=== PATIENT | female | born 1990 | race Caucasian/White ===

== ENCOUNTER 2020-10-25 15:09 | Emergency (ER) | payer MEDICAID, SELFPAY ==
[2020-10-25 15:10] VITALS: BP 122/73; PULSE 98; RESP 14; TEMP 36.9; O2SAT 100; BMI 28.4
[2020-10-25 16:21] VITALS: BP 120/62; PULSE 97; RESP 16; O2SAT 98
--- NOTE | 2020-10-25 17:03 | CT_ITS ---
EXAM: CT ANGIOGRAPHY HEAD WITHOUT AND WITH INTRAVENOUS CONTRAST : 1990 CLINICAL INDICATION: Venous sinus thrombosis TECHNIQUE: [place] [facility] [place]/head CT angiography protocol performed without and with intravenous contrast. This CT exam was performed using one or more of the following dose reduction techniques: automated exposure control, adjustment of the mA and/or kV according to patient size, and/or use of iterative reconstruction technique. This report was created using [employer] report generation technology. MIP reconstructed images were created and reviewed. CONTRAST: IV 100mL Isovue-300 COMPARISON: None. FINDINGS: VASCULATURE: RIGHT INTERNAL CAROTID ARTERY: No acute findings. No significant stenosis at the intracranial/visualized segments. No aneurysm. RIGHT ANTERIOR CEREBRAL ARTERY: Unremarkable. No significant stenosis at the visualized segments. Anterior communicating artery is present. No aneurysm. RIGHT MIDDLE CEREBRAL ARTERY: Unremarkable. No significant stenosis at the visualized segments. No aneurysm. RIGHT POSTERIOR CEREBRAL ARTERY: Unremarkable. No occlusion or significant stenosis. No aneurysm. RIGHT VERTEBRAL ARTERY: Unremarkable as visualized. No significant stenosis at the intradural/visualized segments. No aneurysm. LEFT INTERNAL CAROTID ARTERY: No acute findings. No significant stenosis at the intracranial/visualized segments. No aneurysm. LEFT ANTERIOR CEREBRAL ARTERY: Unremarkable. No significant stenosis at the visualized segments. No aneurysm. LEFT MIDDLE CEREBRAL ARTERY: Unremarkable. No significant stenosis at the visualized segments. No aneurysm. LEFT POSTERIOR CEREBRAL ARTERY: Unremarkable. No occlusion or significant stenosis. No aneurysm. LEFT VERTEBRAL ARTERY: Unremarkable as visualized. No significant stenosis at the intradural/visualized segments. No aneurysm. BASILAR ARTERY: Unremarkable. No significant stenosis. No aneurysm. OTHER VASCULATURE: No vascular malformation. Venous sinuses are well-opacified with no filling defects. HEAD: BRAIN AND EXTRA-AXIAL SPACES: Unremarkable. No intra- or extra-axial hemorrhage. No evidence of acute infarct. No intracranial mass or mass effect. There is preservation of the jasso/white matter interface. Posterior fossa structures are unremarkable. Ventricles are appropriate for age. No hydrocephalus. Basal cisterns are patent. BONES/JOINTS: Unremarkable. No discrete lytic or blastic abnormalities. SINUSES: Unremarkable as visualized. Clear. MASTOID AIR CELLS: Unremarkable as visualized. Clear. ORBITS: Visualized globes, extraocular muscles, optic nerves and retrobulbar fat appear unremarkable. CT/CTA Head W/WO Contrast IMPRESSION: Negative head CTA. Individualized dose optimization techniques were used for this CT. at 1755 Reported and signed by: Vinod Pantoja MD Electronically Signed: Vinod Pantoja MD at 17:54 EDT Tel , Service support ,
[2020-10-25] MEDS: 0.9% Normal Saline 1,000 ML 999 ML IV (17:18)
[2020-10-25] MEDS: Metoclopramide 10 MG/2 ML Vial IV (17:20)
[2020-10-25] MEDS: DiphenhydrAMINE 50 MG/ML Syringe 25 MG IV (17:20)
[2020-10-25 17:33] LABS: Hematocrit 34.8 % (37-47); Hemoglobin 11.9 g/dL (12.0-15.0); Mean Corp Hgb Conc 34.2 g/dL (32-36); Mean Corpuscular Hgb 30.9 pg (27.0-32.0); Mean Corpuscular Volume 90.4 fL (81-99); Mean Platelet Vol. 9.7 fl (6.2-12.0); Platelet Count 301 K/mm3 (150-450); RBC Distribution Width CV 13.1 % (11.6-14.6); RBC Distribution Width SD 42.4 fl (35.1-43.9); Red Blood Count 3.85 M/mm3 (4.2-5.4); White Blood Count 10.5 K/mm3 (4.4-11.0)
[2020-10-25 17:51] LABS: Anion Gap 8 (5-15); BUN 6 mg/dL (7-18); BUN/Creat Ratio 13.2 RATIO (10-20); Chloride 106 mmol/L (98-107); Creatinine, Serum 0.46 mg/dL (0.55-1.02); EST Glomerular Filtration Rate 174 mL/min (>60); Est Glom Filt Rate - Afr Amer 210 mL/min (>60); Estimated Creatinine Clearance 183.67 ml/min; Glucose 77 mg/dL (74-106); Potassium 3.1 mmol/L (3.5-5.1); Sodium Level 138 mmol/L (136-145)
--- NOTE | 2020-10-25 18:02 | EDS_ITS ---
HPI History of Present Illness Chief Complaint: Headache Narrative Narrative: Patient presenting for evaluation secondary to headache. Patient is a G1, P0 at 18 weeks . Patient states that over the course about the last 2 weeks she has been having intermittent headaches that are associated with nausea and vomiting. They have no exacerbating or relieving qualities, the not associate with the specific time of day, exertion, eating or drinking. Patient states that she has been having worsening of symptoms specifically over the course of the last week to the point where she is now having a persistent headache over the course of the entire week. It is an occipital sharp throbbing type headache. She denies any visual changes numbness or weakness but she does endorse that she has been having significant nausea and vomiting photophobia and phonophobia with this. She does not have a prior history of headaches. Patient states she has a family history of some people in her family having venous sinus thrombosis, but the patient has no personal history of bleeding dyscrasias. She is on Synthroid for treatment of hypothyroidism. She denies any related complaints currently. Review of systems otherwise negative. [facility] Medical History Hypothyroidism Home Medications levothyroxine 112 mcg PO DAILY 10/25/20 [History Last Taken Unknown] metoclopramide HCl [Reglan] 10 mg PO Q6H PRN #20 tab 10/25/20 [Rx Last Taken Unknown] Allergy/AdvReac Type Severity Reaction Status Date / Time No Known Allergies Allergy Verified 10/25/20 15:13 Surgical History Hx of tonsillectomy Social History Smoking Status: Never smoker ROS ROS ED Constitutional Constitutional ED: Denies chills, fever(s), sweats or weight loss Eyes Eyes: Reports other Details: Photophobia ENT ENT ED: Denies ear pain, neck pain, rhinorrhea or sore throat Cardiovascular Cardiovascular: Denies chest pain Respiratory/Chest Respiratory/Chest: Denies cough or dyspnea Gastrointestinal Gastrointestinal: Reports nausea and vomiting Genitourinary Genitourinary ED: Denies dysuria, hematuria, LMP (females 10-50), urinary frequency or other Musculoskeletal Musculoskeletal: Denies arthralgias, myalgias or neck pain Integumentary Reports other Details: No petechia ; Denies rash Neurologic Neurologic: Reports headache(s) Psychiatric Psychiatric: Reports other Details: No history of IV drug abuse ; Denies depression Hematologic/Lymphatic Hematologic/Lymphatic: Denies easy bleeding or easy bruising Allergic/Immunologic Allergic/Immunologic ED: Reports other Details: No immunosuppression EXAM Physical Exam Const Vital Signs: 10/25/20 15:10 10/25/20 16:21 Temperature 98.5 F Temperature Source Temporal Pulse Rate 98 97 Respiratory Rate 14 16 Blood Pressure 122/73 H 120/62 Blood Pressure Mean 89 81 Pulse Ox 100 98 Oxygen Delivery Method Room Air Room Air Positive well nourished and well developed General Appearance ED: well developed and NAD HEENT Reports normocephalic HEENT Narrative: No mastoid tenderness atraumatic; Negative for temporal artery tenderness or vesicular rash Face and Sinus: Negative for sinus tenderness Eyes PERRL and EOMs intact bilaterally Direct Ophthalmoscopy: No papilledema and No retinal abnormality Neck no lymphadenopathy, supple and no meningeal signs Resp normal respiratory effort and clear to auscultation bilaterally Cardio regular rate, regular rhythm, no murmurs and peripheral pulses 2+ throughout GI non-tender and non-distended Palpation: soft Extremity normal to inspection and full ROM Neuro oriented x3, CN's II-XII intact bilaterally and no sensory deficits noted Sensorium / Orientation: awake and alert Meningeal Signs: no meningeal signs Speech: speech normal Motor Exam: strength 5/5 throughout Psych mental status grossly normal Skin General Skin Exam: Negative for petechiae Lesions: no lesions Rashes: no rashes MDM MDM MDM Narrative Medical decision making narrative: Patient presented due to concerns for headache and a family history of venous sinus thrombosis. IV was established patient was given Reglan Benadryl and a liter normal saline. Laboratory work-up including CBC and chemistry were grossly unremarkable mild hypokalemia at 3.1 this can be replaced through diet. CT angiogram of the brain shows no evidence of acute pathology. Patient's symptoms and presentation really did not seem consistent with a venous sinus thrombosis, but given her family history a work- up was obtained. Given the patient's reassuring presentation and her negative imaging I do not think that further work-up is indicated. She likely has an element of some -induced migraines. Patient did feel better with treatment in the emergency department she will be discharged with a course of Reglan to be taken as needed. She will follow-up with her [employer]AD[employer]. Lab Data Labs: Laboratory Results - last 24 hr 10/25/20 10/25/20 17:23 17:23 WBC 10.5 RBC 3.85 L Hgb 11.9 L Hct 34.8 L MCV 90.4 MCH 30.9 MCHC 34.2 RDW Std Deviation 42.4 RDW Coeff of Siobhan 13.1 Plt Count 301 MPV 9.7 Sodium 138 Potassium 3.1 L Chloride 106 Carbon Dioxide 24.0 Anion Gap 8 BUN 6 L Creatinine 0.46 L Estim Creat Clear Calc 183.67 Est GFR (MDRD) Af Amer 210 Est GFR (MDRD) Non-Af 174 BUN/Creatinine Ratio 13.2 Glucose 77 Calcium 9.0 Radiography Diagnostic Testing: Radiology Impression Head CTA 10/25/20 17:03 IMPRESSION: Negative head CTA. Individualized dose optimization techniques were used for this CT. at 1755 Reported and signed by: Vinod Pantoja MD Electronically Signed: Vinod Pantoja MD at 17:54 EDT Tel , Service support , Discharge Plan Triage Chief Complaint: Headache ED Provider: Leonel Maravilla Dx/Rx/DC Orders Clinical Impression: Headache, migraine Prescriptions: New metoclopramide HCl [Reglan] 10 mg tablet 10 mg PO Q6H PRN (Reason: nausea and vomiting) Qty: 20 RF: 0 No Action levothyroxine 112 mcg Tablet 112 mcg PO DAILY RF: 0 Primary Care Provider: Angely Spangler NP Referrals: Angely Spangler NP, GRAPHIC DESIGN PROFESSOR-C [Primary Care Provider] - Disposition Disposition: Home, Self Care
[2020-10-25 18:13] VITALS: PULSE 68; RESP 15; O2SAT 98
== END 2020-10-25 18:14 | disposition home or self-care (01) ==
PROVIDERS: Emergency Provider Emergency Medicine; PCP Registered Nurse
DX: O99.352 Diseases of the nervous system complicating pregnancy, second trimester (principal); G43.909 Migraine, unspecified, not intractable, without status migrainosus; O99.282 Endocrine, nutritional and metabolic diseases complicating pregnancy, second trimester; E03.9 Hypothyroidism, unspecified; Z3A.18 18 weeks gestation of pregnancy; Z79.899 Other long term (current) drug therapy
CPT/HCPCS: 70496; 80048; 85027; 96361; 96374; 96375; 99283; J7030; Q9967

== ENCOUNTER 2021-01-15 10:30 | Outpatient (RCR) | payer MEDICAID, SELFPAY | END 2021-01-21 23:59 | LOC: DC 10:30 | PROVIDERS: PCP Registered Nurse; Visit Provider Obstetrics & Gynecology | DX: O24.410 Gestational diabetes mellitus in pregnancy, diet controlled (principal); Z3A.00 Weeks of gestation of pregnancy not specified | CPT/HCPCS: 97802; G0108 ==

== ENCOUNTER 2021-01-29 10:30 | Outpatient (RCR) | payer MEDICAID, SELFPAY | END 2021-02-20 23:59 | LOC: DC 10:30 | PROVIDERS: PCP Registered Nurse; Visit Provider Obstetrics & Gynecology | DX: O24.410 Gestational diabetes mellitus in pregnancy, diet controlled (principal); Z3A.00 Weeks of gestation of pregnancy not specified | CPT/HCPCS: G0108 ==

== ENCOUNTER 2021-03-25 19:00 | Inpatient (IN) | payer MEDICAID, SELFPAY ==
[2021-03-25 19:06] VITALS: BMI 31.1
[2021-03-25 19:19] VITALS: BP 118/88; PULSE 119; O2SAT 98
[2021-03-25 19:20] VITALS: TEMP 37
[2021-03-25] MEDS: Lactated Ringers 1,000 ML 50 ML IV (19:30)
[2021-03-25 19:46] LABS: Bedside Glucose 85 mg/dL (70-110)
[2021-03-25] MEDS: 0.9% Normal Saline Single 100 ML IV.SOLN. INTRA-UTER (19:55)
[2021-03-25 19:57] LABS: Absolute Lymphocyte Count 1.77 X10^3/uL (0.83-4.51); Absolute Neutrophil Count 6.3 X10^3/uL (2.0-7.7); Basophil# 0.02 X10^3/uL; Basophil% 0.2 % (0-1); Eosinophil# 0.04 X10^3/uL; Eosinophils% 0.5 % (0-5); Hematocrit 37.3 % (37-47); Hemoglobin 12.7 g/dL (12.0-15.0); Lymphocyte # 1.77 X10^3/ul (0.83-4.51); Lymphocyte % 20.3 % (19-41); Mean Corpuscular Hgb 29.3 pg (27.0-32.0); Mean Corpuscular Volume 86.1 fL (81-99); Mean Platelet Vol. 10.8 fl (6.2-12.0); Monocyte# 0.59 X10^3/uL; Monocyte% 6.8 % (0-10); NRBC Flagged by Analyzer 0 % (0-5); Neutrophil # 6.27 X10^3/uL (2.7-7.7); Platelet Count 262 K/mm3 (150-450); RBC Distribution Width CV 13.4 % (11.6-14.6); RBC Distribution Width SD 42.1 fl (35.1-43.9); Red Blood Count 4.33 M/mm3 (4.2-5.4); White Blood Count 8.7 K/mm3 (4.4-11.0)
--- NOTE | 2021-03-25 20:09 | PCM.HP.OB ---
HPI - General General Date of Admission: 03/25/21 HPI Narrative ADRIAN GRESHAM, is a 30 F at 39.3 who presents for scheduled induction of labor for GDM A2. complicated by COVID-19 positive in third trimester, hypothyroid, graves disease and GDM A2. Positive movement. Denies any loss of fluid or vaginal bleeding. Feeling irregular cramps. Maternal Data Information HARIKA Calculator Estimated Delivery Date Method Current WG Current Estimate 03/29/21 Manual 39w 3d PFSH PFSH Medical History Hypothyroidism Home Medications insulin NPH isoph U-100 human [Novolin N NPH U-100 Insulin] 8 unit SUBCUT QHS 03/25/21 [History Last Taken 03/24/21] levothyroxine 125 mcg PO DAILY 03/25/21 [History Last Taken 03/25/21] vit-iron fum-folic ac [ Vitamin Formula] tab PO DAILY 03/25/21 [History Last Taken 03/25/21] Allergy/AdvReac Type Severity Reaction Status Date / Time No Known Allergies Allergy Verified 03/25/21 20:08 Surgical History Hx of tonsillectomy Social History Smoking Status: Never smoker NST FHR Rate Baby A Baseline: 120 Variability:: Moderate Accelerations:: 15 x 15 Decelerations:: None NST Reactive:: Yes FHR Category:: Category I Uterine Activity:: 1-3 minutes, palpate mild and relaxed in between ROS Eyes Eyes: Denies blurry vision, change in vision or spots in vision ENT HEENT: Denies dizziness or headache(s) Cardiovascular Cardiovascular: Denies abdominal pain, chest pain or dyspnea Respiratory/Chest Respiratory/Chest: Denies cough, dyspnea, shortness of breath at rest or shortness of breath with exertion Gastrointestinal Gastrointestinal: Denies abdominal pain, diarrhea or vomiting Genitourinary Genitourinary: Denies change in urinary stream, difficulty urinating or dysuria Musculoskeletal Musculoskeletal: Reports none Integumentary Integumentary: Denies rash Neurologic Neurologic: Denies dizziness, headache(s), memory loss or weakness Psychiatric Psychiatric: Reports none Vital Signs Vital Signs Vital Signs: 03/25/21 19:19 03/25/21 19:20 Temperature 98.6 F Temperature Source Temporal Pulse Rate 119 H Blood Pressure 118/88 H BP Systolic 118 BP Diastolic 88 Pulse Ox 98 Weight Weight: 154 lb 6.4 oz Body Mass Index (BMI) 31.1 Physical Exam Const alert, oriented x3 and no apparent distress General Appearance: cooperative Orientation / Consciousness: awake Exam Limitations: no limitations HEENT normocephalic Head and Scalp: normal to inspection Eyes General Eye: normal appearance of both eyes Neck full ROM and no lymphadenopathy Lymph Lymphatic: no lymphadenopathy noted Chest inspection of chest normal Resp normal respiratory effort, normal air movement and clear to auscultation bilaterally Effort and Inspection: able to speak in complete sentences and symmetric chest movement Cardio regular rate and regular rhythm GI normal to inspection, nondistended, normoactive bowel sounds Manual OB Exam: presentation cephalic, dilated 2.5, effaced 60 and station -2 Back/Spine normal ROM Extremity full ROM and no calf tenderness Skin no rashes or lesions noted General Skin Exam: no breakdown Neuro oriented x3 and CN's II-XII intact bilaterally Psych mental status grossly normal and thought process normal Labs Labs Labs: Blood Type Pending Antibody Screen Pending Hct 37.3 % (37-47) Hgb 12.7 g/dL (12.0-15.0) A+ Rubella- immune HB- neg HC- neg HIV- NR RPR- NR GBS- negative Assessment & Plan (1) 39 weeks gestation of : (2) Encounter for induction of labor: (3) GDM, class A2: (4) Graves disease: (5) COVID-19 affecting in third trimester: PLAN: Admit to labor and delivery Routine labs Start IV fluids and titrate per orders GBS negative CE- 2.5/60/-2 Contreras bulb placed without difficulty and balloon filled with 30 cc fluid Diabetes protocol initiated Start Pitocin IV at 2 mu/min and titrate per policy Anticipate Dr. Melara notified of admission and will be assuming care of patient due to GDM A2
[2021-03-25 20:54] VITALS: BP 119/67; PULSE 83; TEMP 37.2
[2021-03-25] MEDS: Oxytocin 30 units/NS 500 ml 30 UNITS/500 ML IV.SOLN IV (20:57)
[2021-03-25 21:01] LABS: Bedside Glucose 76 mg/dL (70-110)
[2021-03-25 23:23] VITALS: TEMP 37.2
[2021-03-25 23:24] VITALS: BP 102/54; PULSE 78
[2021-03-26] VITALS (70 sets, daily range): BP systolic 92–147; BP diastolic 51–102; PULSE 65–102; RESP 11–19; TEMP 36.2–37.5; O2SAT 81–100
[2021-03-26 00:31] LABS: Bedside Glucose 83 mg/dL (70-110)
[2021-03-26] MEDS: Lactated Ringers 500 ML 999 ML IV ×3 (01:48→06:10)
[2021-03-26] MEDS: fentaNYL-bupivacaine (epidural) 100 ML BAG EPIDURAL ×2 (03:00→08:36)
[2021-03-26 03:56] LABS: Bedside Glucose 88 mg/dL (70-110)
[2021-03-26 06:51] LABS: Bedside Glucose 74 mg/dL (70-110)
[2021-03-26 08:00] LABS: Bedside Glucose 114 mg/dL (70-110)
--- NOTE | 2021-03-26 08:10 | PCM.PN.BLA ---
Progress Note At bedside to check on pt. She is comfortable. Cvx 8/90/0. FHT 135/mod chaparro/+accels/+1 late decel. Inadequate ctx's and pitocin has been off for about 2 hours. Will restart here this morning if FHT continues to be reassuring.
[2021-03-26] MEDS: Lactated Ringers 1,000 ML 200 ML IV (08:38)
[2021-03-26 08:56] LABS: Bedside Glucose 68 mg/dL (70-110)
[2021-03-26 09:51] LABS: Bedside Glucose 69 mg/dL (70-110)
[2021-03-26] MEDS: Sodium Citrate/Citric Acid 30 ML UDC PO (11:09)
--- NOTE | 2021-03-26 11:14 | PCM.PN.BLA ---
Progress Note Called by RN for minimal variability. Tracing was reviewed in office and FHT noted to be 135/min chaparro/no accels/no decels at that point in time. Per RN check cvx unchanged. Pitocin off given variability. Resuscitative measures had been started. At bedside now to talk to pt. FHT now 135/min-mod chaparro/+accels/no decels. Recommend section for intolerance to labor. Discussed r/b/a and obtained consent. Patient desires to proceed with section.
[2021-03-26 11:21] LABS: Bedside Glucose 68 mg/dL (70-110)
--- NOTE | 2021-03-26 12:27 | OP.PCM_ITS ---
Problems Associated Problem List Diagnoses (1) 39 weeks gestation of : (2) GDM, class A2: (3) Graves disease: (4) COVID-19 affecting in third trimester: (5) Hypothyroidism: (6) intolerance to labor, delivered, current hospitalization: (7) delivery delivered: Report of Operation Date of Procedure: 03/26/21 Pre-Operative Diagnosis: 39 week gestation, primiparous patient, single IUP, A2GDM, hypothyroidism, intolerance to labor Post-Operative Diagnosis: As above Surgery/Procedure Performed:: PLTCS via pfannenstiel incision Description of Surgical Findings:: Indications: Pt induced at 39 wk for A2GDM. She progressed to 8/90/0. Pitocin titration had to be discontinued on several occasions due to minimal variability and decelerations. Thick meconium stained fluid was noted. Meconium stained fluid. Apgars 8, 9. Normal uterus and bilateral adnexa. Surgeon: Bert health program director: Emilie MCCOLLUM Type of Anesthesia: Epidural Special Medications: None Specimen's removed: Placenta Drains: Contreras Estimated Blood Loss (mL): 900 Fluids Replaced: 1200 Description of Procedure: The patient was taken to the operating room where epidural anesthesia was found to be adequate. She was prepped and draped in the dorsal position with a leftward tilt. A Pfannenstiel skin incision was made with a scalpel and this was carried down to the underlying layer fascia. The fascia was incised in the midline. The fascia was extended laterally using Andrew scissors. The fascia was dissected off the rectus muscles with combination of sharp and blunt dissection. Rectus muscles were in the midline. The peritoneum was entered bluntly with good visualization of the bladder. The incision was extended bluntly. A bladder flap was created. A low transverse incision was made with a scalpel on the uterus. Meconium stained fluid was noted upon entry into the uterus. The infant's head was flexed and easily brought to the hysterotomy. The infant was delivered through the hysterotomy without any force or delay, and atraumatically. The cord was clamped and cut immediately and the was handed off to the nursery staff. The was vigorous at delivery. Cord gases were sent. The uterus was exteriorized. The placenta was removed with manual extraction. The uterus was cleared of all clot and debris. The hysterotomy was closed with Vicryl in a running locked fashion. A second imbricating layer was performed with Vicryl. Uterine incision was noted to be hemostatic. Bilateral fallopian tubes and ovaries were normal appearing. Uterus was placed back into the abdomen. The gutters were cleared of all clots. Chandrika was placed over the hysterotomy. The peritoneum was closed with Vicryl in a running fashion. The rectus muscles were examined and noted to be hemostatic. The fascia was closed with strata fix in a running fashion. The subcutaneous space was irrigated and made hemostatic with Bovie cautery. The skin was closed in subcuticular fashion using Monocryl. Steri- Strips and a dressing were placed. Instrument, sponge, needle counts were correct. The patient was taken recovery in stable condition. Grafts/Implants Used: None Procedure Start Time: 11:32 Procedure Stop Time: 12:25 Complications None Admit VTE Documentation VTE Present on Admission: No VTE Mechan Device Prophylaxis: SCD's
[2021-03-26] MEDS: Oxytocin 30 units/NS 500 ml 30 UNITS/500 ML IV.SOLN 167 UNITS IV (12:46)
[2021-03-26 13:31] LABS: Bedside Glucose 81 mg/dL (70-110)
[2021-03-26] MEDS: Ketorolac 30 MG/ML Syringe IV ×2 (14:15→20:20)
[2021-03-26] MEDS: Lactated Ringers 1,000 ML 100 ML IV (15:51)
[2021-03-26] MEDS: Ondansetron 4 MG/2 ML Vial IV (16:35)
[2021-03-26] MEDS: Acetaminophen 500 MG Tablet 1000 MG PO (18:59)
[2021-03-27 00:45] VITALS: BP 91/49; PULSE 67; RESP 16; TEMP 36.1; O2SAT 96
[2021-03-27] MEDS: Acetaminophen 500 MG Tablet 1000 MG PO ×4 (01:01→18:34)
[2021-03-27] MEDS: 0.9% Saline Lock 10 ML Syringe IV ×2 (03:10→09:12)
[2021-03-27] MEDS: Ketorolac 30 MG/ML Syringe IV ×2 (03:10→09:12)
[2021-03-27 04:00] VITALS: BP 91/48; PULSE 68; RESP 18; TEMP 36; O2SAT 95
[2021-03-27] MEDS: Levothyroxine 125 MCG Tablet PO (06:30)
[2021-03-27 06:53] LABS: Hemoglobin 9.8 g/dL (12.0-15.0); Mean Corp Hgb Conc 33.8 g/dL (32-36); Mean Corpuscular Hgb 29.8 pg (27.0-32.0); Mean Corpuscular Volume 88.1 fL (81-99); Mean Platelet Vol. 10.3 fl (6.2-12.0); Platelet Count 149 K/mm3 (150-450); RBC Distribution Width CV 13.9 % (11.6-14.6); RBC Distribution Width SD 44.9 fl (35.1-43.9); Red Blood Count 3.29 M/mm3 (4.2-5.4); White Blood Count 9.3 K/mm3 (4.4-11.0)
[2021-03-27 07:10] LABS: Bedside Glucose 66 mg/dL (70-110)
[2021-03-27 07:10] LABS: Bedside Glucose 93 mg/dL (70-110)
--- NOTE | 2021-03-27 07:16 | NURSING ---
Hypoglycemic Episode - Pt's FBG this AM was 66 and she felt lightheaded - gave 120mL of orange juice - rechecked after 15 minutes - BG 93 and lightheadedness resolved - gave pt crackers and peanut butter.
--- NOTE | 2021-03-27 08:11 | PCM.PN.OB ---
Subjective Subjective Pain controlled. Objective Data Objective Data Vital Signs: Vital Signs Temp Pulse Resp BP Pulse Ox 96.8 F L 68 18 91/48 L 95 03/27/21 04:00 03/27/21 04:00 03/27/21 04:00 03/27/21 04:00 03/27/21 04:00 Oxygen Delivery Method Room Air Weight: 154 lb 6.4 oz Body Mass Index (BMI) 31.1 Intake & Output: Intake and Output for Last 24 Hours 03/25/21 03/26/21 03/27/21 23:59 23:59 23:59 Intake Total 5.9 / 5.9 5757.90 / 5757.90 Output Total 2425 / 2425 400 / 400 Balance 5.9 / 5.9 3332.90 / 3332.90 -400 / -400 Lab / Micro Data Result Diagrams: 03/27/21 06:42 Labs: Laboratory Results - last 24 hr 03/26/21 08:48: POC Glucose 68 L 03/26/21 09:46: POC Glucose 69 L 03/26/21 10:43: POC Glucose 68 L 03/26/21 13:26: POC Glucose 81 03/27/21 06:33: POC Glucose 66 L 03/27/21 06:42: WBC 9.3, RBC 3.29 L, Hgb 9.8 L, Hct 29.0 L, MCV 88.1, MCH 29.8, MCHC 33.8, RDW Std Deviation 44.9 H, RDW Coeff of Siobhan 13.9, Plt Count 149 L, MPV 10.3 03/27/21 06:55: POC Glucose 93 Physical Exam Const alert, oriented x3 and no apparent distress HEENT normocephalic GI soft to palpation, non-tender and non-distended GI Narrative: fundus firm, mid & below umbilicus Incision - bandage c/d/i Extremity normal to inspection and no calf tenderness Assessment & Plan (1) delivery delivered: COMMENT: POD#1 PLAN: Heme - HDS, cbc reviewed ID - AF, no signs infection GI - ADAT - no issues (2) GDM, class A2: PLAN: FBS normal this AM Plan for PP 2hr GTT
[2021-03-27 08:29] VITALS: BP 93/49; PULSE 78; RESP 16; TEMP 36.3; O2SAT 96
[2021-03-27] MEDS: Senna/Docusate Sodium 1 Tablet PO (09:12)
[2021-03-27 12:30] VITALS: BP 81/42; PULSE 70; RESP 16; TEMP 36.3; O2SAT 98
[2021-03-27] MEDS: Ibuprofen 600 MG Tablet PO ×2 (15:37→22:11)
[2021-03-27 15:39] VITALS: BP 99/49; PULSE 70; RESP 18; TEMP 36.6; O2SAT 97
[2021-03-27 20:00] VITALS: BP 103/61; PULSE 69; RESP 16; TEMP 36.3; O2SAT 96
[2021-03-28] MEDS: Acetaminophen 500 MG Tablet 1000 MG PO ×3 (00:34→12:08)
[2021-03-28 03:00] VITALS: BP 104/56; PULSE 71; RESP 16; TEMP 36.3; O2SAT 97
[2021-03-28] MEDS: Ibuprofen 600 MG Tablet PO ×2 (04:10→10:21)
[2021-03-28] MEDS: Levothyroxine 125 MCG Tablet PO (06:39)
--- NOTE | 2021-03-28 08:23 | PCM.PN.OB ---
Subjective Subjective Pain well controlled. Average lochia. Has had a bowel movement. Tolerating regular diet. Objective Data Objective Data Vital Signs: Vital Signs Temp Pulse Resp BP Pulse Ox 97.4 F L 71 16 104/56 L 97 03/28/21 03:00 03/28/21 03:00 03/28/21 03:00 03/28/21 03:00 03/28/21 03:00 Oxygen Delivery Method Room Air Weight: 70.035 kg Body Mass Index (BMI) 31.1 Intake & Output: Intake and Output for Last 24 Hours 03/26/21 03/27/21 03/28/21 23:59 23:59 23:59 Intake Total 5757.90 / 5757.90 Output Total 2425 / 2425 1000 / 1000 Balance 3332.90 / 3332.90 -1000 / -1000 Lab / Micro Data Result Diagrams: 03/27/21 06:42 Physical Exam Const alert General Appearance: cooperative GI GI Narrative: soft, moderate distention, fundus firm, appropriately tender. Abdominal bandage clean dry and intact Assessment & Plan (1) delivery delivered: COMMENT: POD#2 patient is doing well. Ready for discharge. is breast-feeding and doing well. (2) 39 weeks gestation of :
--- NOTE | 2021-03-28 08:25 | DS.PCM_ITS ---
Providers Date of Admission: 03/25/21 Primary Care Physician: DAYO Grace Reason For Visit: PRIMARY C SECTION Diagnosis Discharge Diagnosis (1) delivery delivered: Status: Acute Code(s): O82 - Encounter for delivery without indication (2) 39 weeks gestation of : Status: Acute Code(s): Z3A.39 - 39 weeks gestation of Medications at Discharge Home Medications levothyroxine 125 mcg PO DAILY 03/25/21 vit-iron fum-folic ac tab PO DAILY 03/25/21 ibuprofen 600 mg PO Q6H PRN 20 Days #60 tablet 03/28/21 Hospital Course Operations - (Primary low transverse section with double layer closure of the uterus) Procedures None Summary of Care Provided Hospital Course: 30-year-old nulliparous female admitted at 39 and 3 weeks on 03/25/2021 for induction of labor due to gestational diabetes. Her labor progressed to 8 cm where she had intolerance of labor. She had a primary low transverse section without difficulty. By postoperative day #2 she was ambulating, urinating tolerating regular diet and desired discharge home. The was breast-feeding and doing well. She is to follow-up in the office in 1-2 in 6 weeks or as needed. She declines need for narcotic prescription. Weight / BMI Weight Weight: 70.035 kg Body Mass Index (BMI) 31.1 ABG / Lab / Microbiology Data Result Diagrams: 03/27/21 06:42 Meaningful Use Info Meaningful Use Diagnoses (Choose all that apply): None applicable Discharge Plan Admission Admit Date/Time: 03/25/21 19:00 Primary Reason for Your Visit: delivery Attending Provider: Libby Harris Primary Care Provider: Angely Spangler NP Discharge Orders/Prescriptions Prescriptions: New ibuprofen [ibuprofen] 600 MG tablet 600 mg PO Q6H PRN (Reason: Pain) 20 Days Qty: 60 RF: 1 Continued levothyroxine 125 mcg Tablet 125 mcg PO DAILY RF: 0 vit-iron fum-folic ac 60-0.8 mg Tablet PO DAILY RF: 0 Discontinued Novolin N NPH U-100 Insulin 100 unit/mL Suspension 8 unit SUBCUT QHS RF: 0 Referrals / Follow Up: Angely Spangler NP, RESEARCH METHODS INSTRUCTOR-C [Primary Care Provider] - Disposition Disposition (needs filled in before D/C Order can be placed): Home, Self Care
[2021-03-28 08:56] VITALS: BP 96/66; PULSE 62; RESP 16; TEMP 36.7; O2SAT 99
[2021-03-28] MEDS: Senna/Docusate Sodium 1 Tablet PO (10:21)
== END 2021-03-28 12:20 | disposition home or self-care (01) | DRG 540 ==
PROVIDERS: Obstetrics & Gynecology; Admitting Provider Advanced Practice Midwife; PCP Registered Nurse; Referring Provider Pediatrics; Visit Provider Advanced Practice Midwife
DX: O76 Abnormality in fetal heart rate and rhythm complicating labor and delivery (principal); O24.425 Gestational diabetes mellitus in childbirth, controlled by oral hypoglycemic drugs; E03.9 Hypothyroidism, unspecified; Z79.4 Long term (current) use of insulin; E05.00 Thyrotoxicosis with diffuse goiter without thyrotoxic crisis or storm; Z3A.39 39 weeks gestation of pregnancy; O77.0 Labor and delivery complicated by meconium in amniotic fluid; Z37.0 Single live birth; O99.284 Endocrine, nutritional and metabolic diseases complicating childbirth; Z86.16 Personal history of COVID-19; Z79.899 Other long term (current) drug therapy; Z79.890 Hormone replacement therapy
CPT/HCPCS: 59025; 59050; 82962; 85025; 85027; 86850; 86900; 86901; 99218; J7120; A4216; G0378; J2405

== ENCOUNTER 2021-03-30 13:22 | Emergency (ER) | payer MEDICAID, SELFPAY ==
[2021-03-30 13:22] VITALS: BP 142/96; PULSE 88; RESP 16; TEMP 36.4; O2SAT 100; BMI 29.0
--- NOTE | 2021-03-30 13:34 | ED.RN ---
spoke with Snow in OB. Wants pt to sit for a few and recheck BP
--- NOTE | 2021-03-30 13:45 | CT_ITS ---
STUDY: CTA CHEST REASON FOR EXAM: Female, 30 years old. Cp RADIATION DOSAGE (If Supplied By Facility): CTDIvol = ( 3.85 ) mGy, DLP = ( 150.15 ) mGycm TECHNIQUE: The examination was performed with the intravenous administration of IV 100mL Isovue-370. Post-processing of the angiographic images was performed, with multiplanar reformation and 3D reconstruction. Individualized dose optimization techniques were used for this CT. COMPARISON: None. FINDINGS: Small benign-appearing bilateral axillary lymph nodes. Normal enhancement of the main pulmonary artery and right and left pulmonary arteries. Normal enhancement of the bilateral peripheral pulmonary arteries. There is no demonstrated pulmonary embolism. Normal thoracic aorta and visualized great vessels. There is no demonstrated aortic dissection. Normal heart and pericardium. Normal mediastinum. Calcified right hilar lymph nodes. Normal visualized trachea and bronchi. The lungs are well expanded. 5 mm calcified granuloma in the anterior medial aspect of the right upper lobe as well as in the right lower lobe. Normal pleura. Normal chest wall structures. Normal osseous structures. Normal visualized upper abdomen. CT/CTA Chest W/WO Contrast IMPRESSION: No evidence of pulmonary embolism. Scattered calcified granulomas. Electronically Signed: Fabien Sarah MD at 15:13 EST , Service support ,
--- NOTE | 2021-03-30 13:45 | EKG12_ITS ---
Test Reason : CP Blood Pressure : / mmHG Vent. Rate : 071 BPM Atrial Rate : 071 BPM P-R Int : 136 ms QRS Dur : 084 ms QT Int : 360 ms P-R-T Axes : 061 021 048 degrees QTc Int : 391 ms Normal sinus rhythm with sinus arrhythmia Low voltage QRS Borderline ECG Confirmed by DEEPTHI DE LOS SANTOS, ABBI ([id number]), fan mail editor BALBIR ROSE ([id number]) on 04/04/2021 11:22:29 AM Referred By: NANI/BISHOP Confirmed By:ABBI LACEY MD
--- NOTE | 2021-03-30 13:46 | EDS_ITS ---
HPI History of Present Illness Chief Complaint: Chest Pain Informant: patient Onset/Context/Timing Onset: Days Context: Gradual Onset Current Severity: Mild Maximum Severity: Moderate Narrative Narrative: Patient presents secondary to 3 days of chest pain. She reports intermittent right upper chest pain. She will get a more rare left upper sharp chest pain. She had a 3 days ago. OB doctor sent her in to rule out PE. [facility] Medical History (Updated 03/30/21 @ 16:[address] Awa Juarez MD) Gestational diabetes Hypothyroidism Hypothyroidism Home Medications levothyroxine 125 mcg PO DAILY 03/25/21 [History Last Taken 03/25/21] vit-iron fum-folic ac tab PO DAILY 03/25/21 [History Last Taken 03/25/21] ibuprofen 600 mg PO Q6H PRN 20 Days #60 tablet 03/28/21 [Rx Last Taken Unknown] Allergy/AdvReac Type Severity Reaction Status Date / Time No Known Allergies Allergy Verified 03/30/21 13:26 Surgical History History of adenectomy History of laparoscopy Hx of tonsillectomy [place] teeth extracted Social History Smoking Status: Never smoker ROS ROS ED Constitutional Constitutional ED: Denies chills or fever(s) Eyes Eyes: Denies change in vision ENT ENT ED: Denies sore throat Cardiovascular Cardiovascular: Reports chest pain Respiratory/Chest Respiratory/Chest: Denies cough or dyspnea Gastrointestinal Gastrointestinal: Denies abdominal pain, diarrhea, nausea or vomiting Genitourinary Genitourinary ED: Denies dysuria Musculoskeletal Musculoskeletal: Denies back pain Integumentary Denies rash Neurologic Neurologic: Denies headache(s) or weakness Allergic/Immunologic Allergic/Immunologic ED: Denies urticaria EXAM Physical Exam Const Vital Signs: 03/30/21 13:22 03/30/21 14:09 03/30/21 16:13 Temperature 97.5 F L 97.5 F L Temperature Source Temporal Temporal Pulse Rate 88 74 87 Respiratory Rate 16 13 19 H Respiratory Effort Normal Blood Pressure 142/96 H 113/82 H Blood Pressure Mean 111 92 Pulse Ox 100 Oxygen Delivery Method Room Air 03/30/21 16:27 Temperature Temperature Source Pulse Rate Respiratory Rate Respiratory Effort Blood Pressure 117/85 H Blood Pressure Mean 95 Pulse Ox Oxygen Delivery Method Positive well nourished and well developed General Appearance ED: well developed HEENT Reports moist mucous membranes Eyes PERRL and EOMs intact bilaterally Resp normal respiratory effort Cardio regular rate and regular rhythm GI non-tender Palpation: soft Extremity Extremity Narrative: 2+ bilateral lower extremity edema, symmetric Neuro oriented x3 Sensorium / Orientation: alert Psych mental status grossly normal Skin no rashes or lesions noted MDM MDM MDM Narrative Medical decision making narrative: EKG, lab work, CTA chest obtained. Lab Data Attestation: I reviewed the patient's lab results. Labs: Laboratory Results - last 24 hr 03/30/21 03/30/21 14:05 14:05 WBC 7.9 RBC 4.08 L Hgb 12.1 Hct 36.0 L MCV 88.2 MCH 29.7 MCHC 33.6 RDW Std Deviation 44.5 H RDW Coeff of Siobhan 13.6 Plt Count 346 MPV 9.6 Immature Gran % (Auto) 0.600 Neut % (Auto) 72.0 H Lymph % (Auto) 19.6 [place] % (Auto) 4.2 Eos % (Auto) 3.0 Baso % (Auto) 0.6 Absolute Neuts (auto) 5.7 Absolute Lymphs (auto) 1.55 Nucleated RBC % 0 Sodium 142 Potassium 3.1 L Chloride 107 Carbon Dioxide 28.0 Anion Gap 7 BUN 11 Creatinine 0.75 Estim Creat Clear Calc 115.15 Est GFR (MDRD) Af Amer 118 Est GFR (MDRD) Non-Af 98 BUN/Creatinine Ratio 14.7 Glucose 92 Calcium 9.3 Troponin I High Sens 3 Radiography Diagnostic Testing: Clinical Impression(s) from Imaging Studies Chest CTA 03/30/21 13:45 IMPRESSION: No evidence of pulmonary embolism. Scattered calcified granulomas. Electronically Signed: Fabien Sarah MD at 15:13 EST , Service support , EKG Initial EKG: Attestation: I personally reviewed and interpreted this EKG as follows: Interpretation: Sinus Rhythm (Sinus at 71 with no acute ischemia.) Treatment and Re-Evaluation Comments:: Lab work unremarkable with normal troponin. CTA of the chest reveals no evidence of PE. Patient reassured with the findings. She will continue monitor her symptoms and follow-up with her DERMATOLOGIST. Discharge Plan Triage Chief Complaint: Chest Pain ED Provider: wAa Juarez Dx/Rx/DC Orders Clinical Impression: Chest pain Instructions: ED Chest Pain, Uncertain Cause Prescriptions: No Action levothyroxine 125 mcg Tablet 125 mcg PO DAILY RF: 0 vit-iron fum-folic ac 60-0.8 mg Tablet PO DAILY RF: 0 ibuprofen [ibuprofen] 600 MG tablet 600 mg PO Q6H PRN (Reason: Pain) 20 Days Qty: 60 RF: 1 Primary Care Provider: Angely Spangler NP Referrals: Angely Spangler NP, ASSISTANT SPEE[employer] LANGUAGE PATHOLOGIST-C [Primary Care Provider] - 1 Week if not improving Disposition Disposition: Home, Self Care Discharge Date/Time: 03/30/21 17:03
[2021-03-30 14:09] VITALS: BP 113/82; PULSE 74; RESP 13; TEMP 36.4
[2021-03-30 14:12] LABS: Absolute Lymphocyte Count 1.55 X10^3/uL (0.83-4.51); Absolute Neutrophil Count 5.7 X10^3/uL (2.0-7.7); Basophil# 0.05 X10^3/uL; Basophil% 0.6 % (0-1); Eosinophil# 0.24 X10^3/uL; Hemoglobin 12.1 g/dL (12.0-15.0); Lymphocyte # 1.55 X10^3/ul (0.83-4.51); Lymphocyte % 19.6 % (19-41); Mean Corp Hgb Conc 33.6 g/dL (32-36); Mean Corpuscular Hgb 29.7 pg (27.0-32.0); Mean Corpuscular Volume 88.2 fL (81-99); Mean Platelet Vol. 9.6 fl (6.2-12.0); Monocyte# 0.33 X10^3/uL; Monocyte% 4.2 % (0-10); NRBC Flagged by Analyzer 0 % (0-5); Platelet Count 346 K/mm3 (150-450); RBC Distribution Width CV 13.6 % (11.6-14.6); RBC Distribution Width SD 44.5 fl (35.1-43.9); Red Blood Count 4.08 M/mm3 (4.2-5.4); White Blood Count 7.9 K/mm3 (4.4-11.0)
[2021-03-30 14:38] LABS: Anion Gap 7 (5-15); BUN 11 mg/dL (7-18); BUN/Creat Ratio 14.7 RATIO (10-20); Calcium,Total 9.3 mg/dL (8.5-10.1); Chloride 107 mmol/L (98-107); Creatinine, Serum 0.75 mg/dL (0.55-1.02); EST Glomerular Filtration Rate 98 mL/min (>60); Est Glom Filt Rate - Afr Amer 118 mL/min (>60); Estimated Creatinine Clearance 115.15 ml/min; Glucose 92 mg/dL (74-106); Potassium 3.1 mmol/L (3.5-5.1); Sodium Level 142 mmol/L (136-145); Troponin-I HS 3 pg/mL (3.0-54.0)
[2021-03-30 16:13] VITALS: PULSE 87; RESP 19
[2021-03-30 16:27] VITALS: BP 117/85
[2021-03-30] MEDS: Potassium Chloride Oral Tablet 20 MEQ 40 MEQ PO (17:02)
== END 2021-03-30 17:03 | disposition home or self-care (01) ==
PROVIDERS: Emergency Provider Emergency Medicine; PCP Registered Nurse; Visit Provider Emergency Medicine
DX: R07.89 Other chest pain (principal); E03.9 Hypothyroidism, unspecified; Z79.899 Other long term (current) drug therapy
CPT/HCPCS: 71275; 80048; 84484; 85025; 93005; 99285; J7030; Q9967; A4216

== ENCOUNTER → 2023-05-19 | Outpatient (CLI) | payer MEDICAID, SELFPAY | END | disposition home or self-care (01) | PROVIDERS: PCP Registered Nurse; Visit Provider Otolaryngology Otolaryngology/Facial Plastic Surgery | DX: J02.9 Acute pharyngitis, unspecified (principal) | CPT/HCPCS: 87070 ==